=== PATIENT | male | born 2000 | race Caucasian/White ===

== ENCOUNTER 2022-11-14 14:00 | Outpatient (CLI) | payer BC, SELFPAY | END 2022-11-14 14:01 | disposition home or self-care (01) | PROVIDERS: PCP Family Medicine; Visit Provider Family Medicine | DX: Z00.00 Encounter for general adult medical examination without abnormal findings (principal); Z13.6 Encounter for screening for cardiovascular disorders; F33.9 Major depressive disorder, recurrent, unspecified | CPT/HCPCS: 80053; 80061 ==